=== PATIENT | female | born 1975 | race Asian ===

== ENCOUNTER 2024-01-28 19:11 | Emergency (ER) | payer MEDICAID ==
[~2024-01-28] VITALS: Ht 165.1 cm; Wt 59.5 kg
[2024-01-28 19:42] VITALS: O2SAT 98
[2024-01-28] MEDS: TETANUS, DIPHTHERIA, PERTUSSIS VAC/PF 0.5ML (>10YR OLD) IM ONE (21:51)
[2024-01-28] MEDS: LIDOCAINE HCL/PF 1% 10 MG/ML 5ML VIAL INFIL ONE (21:54)
[2024-01-28] MEDS: BACITRACIN ZINC OINT UDPKT TOP ONE (21:54)
[2024-01-28 22:13] VITALS: BP 103/77; PULSE 65; RESP 18; TEMP 98.5
== END 2024-01-28 22:33 | disposition home or self-care (01) ==
LOC: ER 19:11
DX: S01.111A Laceration without foreign body of right eyelid and periocular area, initial encounter (principal); W26.8XXA Contact with other sharp object(s), not elsewhere classified, initial encounter; Y93.89 Activity, other specified; Y92.89 Other specified places as the place of occurrence of the external cause; Y99.8 Other external cause status
CPT/HCPCS: 12011; 90471; 90715; 99283; J3490